=== PATIENT | male | born 1990 | race Caucasian/White ===

== ENCOUNTER 2017-06-11 21:19 | Emergency (ER) | payer BC, MEDICAID ==
[2017-06-11] MEDS ORDERED: Lidocaine 1% with EPINEPHrine 1:100,000 20 ML MDV INJECT ONE (22:13)
--- NOTE | 2017-06-11 22:18 | EDM.PDOC ---
ED HPI GENERAL MEDICAL PROBLEM - General Chief Complaint: Laceration Stated Complaint: LACERATION TO BOTH HAND POSSIBLE GLASS IN HANDS Time Seen by Provider: 06/11/17 22:06 Source of Information: Reports: Patient, Family History Limitations: Reports: No Limitations - History of Present Illness INITIAL COMMENTS - FREE TEXT/NARRATIVE: Patient is a 26-year-old male with a history of allergic disability, anxiety, impulse disorder, and anger management who presents the ED with his mother complaining of one small laceration to the left and right hand. Patient states his technology strategist daily was looking through his call log on his phone and asking questions about [place]. The patient became agitated and squeezed a champagne glass in his hands causing the lacerations. Bleeding was controlled with direct pressure. Patient has minimal pain at this time. Tetanus status up-to-date. Patient offers no additional complaints. Patient does wear glasses and notes no shards entered his eye. Bilateral Hand Pain Score (Numeric/FACES): 1 - Related Data Allergies Allergy/AdvReac Type Severity Reaction Status Date / Time No Known Allergies Allergy Verified 06/11/17 21:42 Home Meds: Home Meds Fluticasone Propionate [Flonase Allergy Relief] 2 spray INH DAILY 06/11/17 [ History] Loratadine [Claritin] 10 mg PO DAILY 06/11/17 [History] Mirtazapine [Remeron] 15 mg PO BEDTIME 06/11/17 [History] Multivitamin [Multivitamins] 1 cap PO DAILY 06/11/17 [History] Prazosin [Minpress] 15 mg PO DAILY 06/11/17 [History] Sertraline [Zoloft] 225 mg PO DAILY 06/11/17 [History] lamoTRIgine [Lamictal] 150 mg PO DAILY 06/11/17 [History] Past Medical History HEENT History: Reports: Other (See Below) Other HEENT History: nasal septal surgery Psychiatric History: Reports: ADHD, Anxiety, Depression, Mood Swings, Panic Attack Other Psychiatric History: impulsive behavior - Past Surgical History HEENT Surgical History: Reports: Adenoidectomy, Oral Surgery Social & Family History - Tobacco Use Smoking Status *Q: Never Smoker - Caffeine Use Caffeine Use: Reports: Soda - Recreational Drug Use Recreational Drug Use: No ED ROS GENERAL - Review of Systems Review Of Systems: See Below Musculoskeletal: Reports: Hand Pain Skin: Reports: Other (Laceration to left and right hand) Neurological: Denies: Numbness, Tingling ED EXAM, SKIN/RASH Exam: See Below Exam Limited By: No Limitations General Appearance: Alert, WD/WN, No Apparent Distress Ears: Hearing Grossly Normal Nose: Normal Inspection Throat/Mouth: Normal Voice, No Airway Compromise Neck: Normal Inspection, Supple Respiratory/Chest: No Respiratory Distress, No Accessory Muscle Use Cardiovascular: Normal Peripheral Pulses, Regular Rate, Rhythm Peripheral Pulses: 2+: Radial (L) Extremities: Other (Small laceration to the webspace between the thumb and index finger of the left hand. Small laceration to the palmar aspect of the right hand. Lacerations appear to be deep. Bleeding controlled. Minimal bleeding. No obvious glass present.) Neurological: Alert, Oriented, Normal Cognition, No Motor/Sensory Deficits Psychiatric: Normal Affect, Normal Mood Skin: Warm, Dry, Normal Color Front/Back Body Diagram: 1 - 1.5 cm deep laceration 2 - 1 cm deep laceration ED SKIN PROCEDURES - Laceration/Wound Repair Right Ventral Hand Lac/Wound length In cm: 1.0 Appearance: Subcutaneous Distal NVT: Neuro & Vascular Intact Anesthetic Type: Local Local Anesthesia - Lidocaine (Xylocaine): 1% with EPI Local Anesthetic Volume: 4cc Skin Prep: Chlorhexidine (Hibiciens), Saline, Sterile Drape Exploration/Debridement/Repair: Wound Explored, In a Bloodless Field, Explored to Base, No Foreign Material Found Closed with: Sutures Suture Size: 4-0 # of Sutures: 2 Drain Placement: No Sterile Dressing Applied: Nurse Tetanus Status Addressed: Yes Complications: No Left Ventral Hand Lac/Wound length In cm: 1.5 Appearance: Subcutaneous Distal NVT: Neuro & Vascular Intact Anesthetic Type: Local Local Anesthesia - Lidocaine (Xylocaine): 1% with EPI Local Anesthetic Volume: 4cc Skin Prep: Chlorhexidine (Hibiciens), Saline, Sterile Drape Exploration/Debridement/Repair: Wound Explored, In a Bloodless Field, Explored to Base, No Foreign Material Found Closed with: Sutures Suture Size: 4-0 # of Sutures: 3 Suture Type: Prolene, Interrupted, Simple Drain Placement: No Sterile Dressing Applied: Nurse Tetanus Status Addressed: Yes Complications: No Course - Vital Signs Last Recorded V/S: Last Vital Signs Temp 99.0 F 06/11/17 21:39 Pulse 81 06/11/17 21:39 Resp 20 06/11/17 21:39 BP 143/92 H 06/11/17 21:39 Pulse Ox 99 06/11/17 21:39 - Orders/Labs/Meds Orders: Active Orders 24 hr Category Date Time Status Lidocaine 1% w/EPINEPHrine [Xylocaine 1% with Med 06/11/17 22:13 Once EPINEPHrine 1:100,000] 20 ml INJECT ONETIME ONE - Re-Assessments/Exams Free Text/Narrative Re-Assessment/Exam: Ordered 1% lidocaine with epi. Tetanus status is up-to-date. Lacerations closed with no competitions. No foreign objects present. Will discharge patient home with instructions as documented. 06/11/17 22:18 Departure - Departure Time of Disposition: 22:57 Disposition: Home, Self-Care 01 Condition: Good Clinical Impression: Laceration of hand Qualifiers: Encounter type: initial encounter Foreign body presence: without foreign body Laterality: unspecified laterality Qualified Code(s): S61.419A - Laceration without foreign body of unspecified hand, initial encounter - Discharge Information Instructions: Laceration Care, Adult, [id number], Pain Medicine Instructions , [id number], Puncture Wound, [id number], Stitches, [place], or Adhesive Wound Closure, [id number] Referrals: Anusha Lucero NP [Primary Care Provider] - Forms: ED Department Discharge Additional Instructions: Cleanse site twice daily with soap and water, pat dry, reapply triple antibiotic ointment, and dressing. Do not soak the lacerations. Follow-up with PCP or provider at [facility] for suture removal in 7-10 days. Return to the ED if you develop increased swelling, redness, or purulent drainage. - My Orders Last 24 Hours: My Active Orders 06/11/17 22:13 Lidocaine 1% w/EPINEPHrine [Xylocaine 1% with EPINEPHrine 1:100,000] 20 ml INJECT ONETIME ONE - Assessment/Plan Last 24 Hours: My Active Orders 07/28/17 22:13 Lidocaine 1% w/EPINEPHrine [Xylocaine 1% with EPINEPHrine 1:100,000] 20 ml INJECT ONETIME ONE
[2017-06-12 00:26] VITALS: BP 143/92
== END 2017-06-11 23:10 | disposition home or self-care (01) ==
LOC: JD.ED 21:19
DX: S61.411A Laceration without foreign body of right hand, initial encounter (principal); S61.412A Laceration without foreign body of left hand, initial encounter; F41.0 Panic disorder [episodic paroxysmal anxiety]; F32.9 Major depressive disorder, single episode, unspecified; Z98.890 Other specified postprocedural states; Z79.899 Other long term (current) drug therapy
CPT/HCPCS: 12001; 99282-25; 99283-25